=== PATIENT | male | born 1945 | race Caucasian/White ===

== ENCOUNTER 2020-09-03 21:46 | Emergency (ER) | payer MEDICARE, BC ==
[~2020-09-03] VITALS: Ht 182.9 cm; Wt 74.4 kg
[2020-09-03 21:47] VITALS: BP 153/93
--- NOTE | 2020-09-03 21:59 | NUR ---
PT GIVEN CATH KIT, IN RESTROOM.
== END 2020-09-03 22:31 | disposition home or self-care (01) ==
LOC: ED 22:04
DX: Z46.6 Encounter for fitting and adjustment of urinary device (principal)
CPT/HCPCS: 99281